=== PATIENT | male | born 1990 ===

== ENCOUNTER 2017-01-26 03:07 | Emergency (ER) | payer SELFPAY ==
[2017-01-26 03:20] VITALS: BP 131/84; PULSE 114; RESP 15; TEMP 98.5; O2SAT 99
--- NOTE | 2017-01-26 05:34 | ED PDOC ---
HPI: Psych/Substance Abuse Time Seen by Provider: 01/26/17 03:30 Chief Complaint (Nursing): Psychiatric Evaluation Chief Complaint (Provider): anxiety History Per: Patient (26 y/o male here for evaluation of anxiety that occurred after having argument with girlfriend. Patient is from [place] and staying with girlfriend's friend. States his girlfriend left him and he is upset but is not having any homicidal or suicidal ideation. Admits to drinking etoh. States since being in ED feels progressively more calm and less anxious. Does not want to speak with crisis.) Past Medical History Reviewed: Historical Data, Nursing Documentation, Vital Signs Vital Signs: Last Vital Signs Temp 98.5 F 01/26/17 03:12 Pulse 114 H 01/26/17 03:12 Resp 15 01/26/17 03:12 BP 131/84 01/26/17 03:12 Pulse Ox 99 01/26/17 03:12 - Family History Family History: States: No Known Family Hx - Allergies Allergies/Adverse Reactions: Allergies Allergy/AdvReac Type Severity Reaction Status Date / Time aspirin Allergy ITCHING Verified 01/26/17 03:20 Review of Systems ROS Statement: Except As Marked, All Systems Reviewed And Found Negative Physical Exam - Reviewed Nursing Documentation Reviewed: Yes Vital Signs Reviewed: Yes - Physical Exam Appears: Positive for: Well, Non-toxic, No Acute Distress Head Exam: Positive for: ATRAUMATIC, NORMAL INSPECTION, NORMOCEPHALIC Skin: Positive for: Normal Color, Warm, DRY Eye Exam: Positive for: EOMI, Normal appearance, PERRL ENT: Positive for: Normal ENT Inspection Neck: Positive for: Normal, Painless ROM Cardiovascular/Chest: Positive for: Regular Rate, Rhythm Respiratory: Positive for: CNT, Normal Breath Sounds Gastrointestinal/Abdominal: Positive for: Normal Exam, Bowel Sounds, Soft Back: Positive for: Normal Inspection Extremity: Positive for: Normal ROM Neurologic/Psych: Positive for: Alert, Oriented - ECG O2 Sat by Pulse Oximetry: 99 Disposition - Clinical Impression Clinical Impression: Stress reaction, Anxiety - Patient ED Disposition Is Patient to be Admitted: No - Disposition Referrals: [facility] [Outside] Disposition: Routine/Home Disposition Time: 05:35 Condition: FAIR Instructions: Stress (ED), Anxiety (ED) Print Language: BELARUSIAN
== END 2017-01-26 06:22 | disposition home or self-care (01) ==
LOC: H.ER 03:07
DX: F41.9 Anxiety disorder, unspecified (principal)